=== PATIENT | female | born 1965 | race Caucasian/White ===

== ENCOUNTER 2023-11-03 06:45 | Emergency (ER) | payer MEDICARE, BC ==
[~2023-11-03] VITALS: Ht 175.3 cm; Wt 91.0 kg
[2023-11-03 06:53] VITALS: O2SAT 97
[2023-11-03 08:54] LABS: CLARITY URINE TURBID (CLEAR); COLOR URINE YELLOW (YELLOW); GLUCOSE URINE NEGATIVE (NEGATIVE); KETONES URINE NEGATIVE (NEGATIVE); LEUKOCYTE ESTERASE URINE 3+ (NEGATIVE); NITRITE URINE NEGATIVE (NEGATIVE); OCCULT BLOOD URINE 2+ (NEGATIVE); PROTEIN URINE 1+ (NEGATIVE); SPECIFIC GRAVITY URINE 1.014 (1.005-1.030)
[2023-11-03 09:12] LABS: TRIPLE PHOSPHATE CRYSTAL URINE 1+ /lpf; WBC URINE TNTC /hpf (0-2)
[2023-11-03 09:13] LABS: BACTERIA URINE 4+; SQUAMOUS EPITHELIAL CELL URINE NONE SEEN /lpf (RARE/1+)
[2023-11-03 09:15] LABS: RBC URINE 15-25 /hpf (0-2)
[2023-11-03] MEDS ORDERED: CEFP200T13 MT (09:50)
[2023-11-03] MEDS: CEFTRIAXONE SODIUM 1G VIAL IM ONE (10:30)
[2023-11-03] MEDS: LIDOCAINE HCL 1% 20ML VIAL (Pyxis) INJ INFIL ONE (10:31)
[2023-11-03 10:59] VITALS: BP 118/78; PULSE 88; RESP 18; TEMP 98.3
== END 2023-11-03 11:04 | disposition home or self-care (01) ==
LOC: ER 06:45
DX: N39.0 Urinary tract infection, site not specified (principal); Z87.891 Personal history of nicotine dependence
CPT/HCPCS: 99283; 81003; 87086; 96372; J0696; J3490; 51702; 99284

== ENCOUNTER 2025-07-07 04:20 | Emergency (ER) | payer BC, MEDICARE ==
[~2025-07-07] VITALS: Ht 162.6 cm; Wt 81.6 kg
[~2025-07-07 04:20] MED LIST: CEFP200T13 MT
[2025-07-07 04:26] VITALS: TEMP 98.5; O2SAT 98
[2025-07-07 06:35] VITALS: BP 95/54; PULSE 102; RESP 12; O2SAT 98
== END 2025-07-07 06:54 | disposition home or self-care (01) ==
LOC: ER 04:20
DX: T83.090A Other mechanical complication of cystostomy catheter, initial encounter (principal); Z88.6 Allergy status to analgesic agent; X58.XXXA Exposure to other specified factors, initial encounter
CPT/HCPCS: 93005; 51705; 99284; Z7610